=== PATIENT | female | born 1940 | race Caucasian/White ===

== ENCOUNTER 2020-02-13 16:48 | Emergency (ER) | payer MEDICARE ==
[~2020-02-13] VITALS: Ht 152.4 cm; Wt 95.3 kg
[~2020-02-13 16:48] MED LIST: ACETAMINOPHEN-1 EAC1 PO; ALPRAZOLAM ER0.5 MG PO; ASPIRIN; ASPIRIN EC325 M1; ASPIRIN325 PO; AVELOX 400 MG400 MG PO; CAPTOPRIL 25 MG25 M1; CELEBREX100 MG/1 C PO; COZAAR 25MG TAB25 M1 PO; DYRENIUM100 MG; FLUTICASONE; KLOR-CON 1010 MEQ PO; LAMOTRIGINE; LAMOTRIGINE150 MG PO; LAMOTRIGINE25 M2; LEVOTHROID100 MC1; LEVOTHYROXINE; LEVOXYL100 MCG PO; LEXAPRO; LEXAPRO20 MG; LEXAPRO20 MG PO; LIPITOR 20 MG T20 M1 PO; MAXZIDE 75-501 EACH PO; PLAVIX 75 MG TA75 M1 PO; POTASSIUM; POTASSIUM20; PRILOSEC40 MG PO; RISPERDAL0.5 MG PO; RISPERDAL2 MG; RISPERIDONE; SINGULAIR; SINGULAIR 10 MG10 M1; TRIAMTERENE; VERAMYST10 GM; XANAX; XANAX 0.5 MG0.5 MG
[2020-02-13] MEDS ORDERED: RIVASTIGMINE1 EAC1 TOP (17:04)
[2020-02-13] MEDS ORDERED: DOXYCYCLINE 10100 M2 PO (17:09)
[2020-02-13 17:35] VITALS: BP 175/59
== END 2020-02-13 17:36 | disposition home or self-care (01) ==
LOC: M.ERS 16:48
DX: L03.115 Cellulitis of right lower limb (principal); I10 Essential (primary) hypertension; E03.9 Hypothyroidism, unspecified; J45.909 Unspecified asthma, uncomplicated; M19.90 Unspecified osteoarthritis, unspecified site; F32.9 Major depressive disorder, single episode, unspecified; Z96.651 Presence of right artificial knee joint; Z98.51 Tubal ligation status; Z86.73 Personal history of transient ischemic attack (TIA), and cerebral infarction without residual deficits; Z90.49 Acquired absence of other specified parts of digestive tract; Z88.1 Allergy status to other antibiotic agents; Z88.6 Allergy status to analgesic agent; Z88.8 Allergy status to other drugs, medicaments and biological substances

== ENCOUNTER → 2020-02-23 | Outpatient (CLI) | payer MEDICARE ==
[~2020-02-23] MED LIST changes: +DOXYCYCLINE 10100 M2 PO; +RIVASTIGMINE1 EAC1 TOP
== END ==
LOC: M.WC 08:45
DX: S81.811A Laceration without foreign body, right lower leg, initial encounter (principal); E78.5 Hyperlipidemia, unspecified; E03.9 Hypothyroidism, unspecified; E66.9 Obesity, unspecified; H81.09 Meniere's disease, unspecified ear; I10 Essential (primary) hypertension; J42 Unspecified chronic bronchitis; G47.33 Obstructive sleep apnea (adult) (pediatric); G25.81 Restless legs syndrome; M19.90 Unspecified osteoarthritis, unspecified site; M48.061 Spinal stenosis, lumbar region without neurogenic claudication; F32.9 Major depressive disorder, single episode, unspecified; Z90.49 Acquired absence of other specified parts of digestive tract; Z96.653 Presence of artificial knee joint, bilateral; Z86.73 Personal history of transient ischemic attack (TIA), and cerebral infarction without residual deficits; Z79.01 Long term (current) use of anticoagulants; W20.0XXA Struck by falling object in cave-in, initial encounter; Y93.89 Activity, other specified; Y92.89 Other specified places as the place of occurrence of the external cause; Y99.8 Other external cause status; Z68.41 Body mass index [BMI] 40.0-44.9, adult

== ENCOUNTER → 2020-03-01 | Outpatient (CLI) | payer MEDICARE | LOC: M.WC 04:22 | PROVIDERS: ATTEND Surgery | DX: S81.811D Laceration without foreign body, right lower leg, subsequent encounter (principal); E78.5 Hyperlipidemia, unspecified; E03.9 Hypothyroidism, unspecified; E66.9 Obesity, unspecified; G47.33 Obstructive sleep apnea (adult) (pediatric); G25.81 Restless legs syndrome; H81.09 Meniere's disease, unspecified ear; I10 Essential (primary) hypertension; J42 Unspecified chronic bronchitis; M19.90 Unspecified osteoarthritis, unspecified site; M48.061 Spinal stenosis, lumbar region without neurogenic claudication; F32.9 Major depressive disorder, single episode, unspecified; Z68.41 Body mass index [BMI] 40.0-44.9, adult; Z79.01 Long term (current) use of anticoagulants; Z90.49 Acquired absence of other specified parts of digestive tract; Z96.653 Presence of artificial knee joint, bilateral; Z86.73 Personal history of transient ischemic attack (TIA), and cerebral infarction without residual deficits; W19.XXXD Unspecified fall, subsequent encounter ==

== ENCOUNTER → 2020-03-08 | Outpatient (CLI) | payer MEDICARE | LOC: M.WC 04:52 | PROVIDERS: ATTEND Surgery | DX: S81.811D Laceration without foreign body, right lower leg, subsequent encounter (principal); E78.5 Hyperlipidemia, unspecified; E03.9 Hypothyroidism, unspecified; E66.9 Obesity, unspecified; H81.09 Meniere's disease, unspecified ear; I10 Essential (primary) hypertension; G47.33 Obstructive sleep apnea (adult) (pediatric); J42 Unspecified chronic bronchitis; M48.061 Spinal stenosis, lumbar region without neurogenic claudication; M19.90 Unspecified osteoarthritis, unspecified site; G25.81 Restless legs syndrome; F32.9 Major depressive disorder, single episode, unspecified; Z86.73 Personal history of transient ischemic attack (TIA), and cerebral infarction without residual deficits; Z79.01 Long term (current) use of anticoagulants; Z90.49 Acquired absence of other specified parts of digestive tract; Z96.653 Presence of artificial knee joint, bilateral; Z68.41 Body mass index [BMI] 40.0-44.9, adult; W19.XXXD Unspecified fall, subsequent encounter ==

== ENCOUNTER → 2021-02-21 | Outpatient (CLI) | payer MEDICARE | LOC: M.WC 09:00 | PROVIDERS: ATTEND Surgery | DX: S81.812A Laceration without foreign body, left lower leg, initial encounter (principal); E78.5 Hyperlipidemia, unspecified; E03.9 Hypothyroidism, unspecified; E66.9 Obesity, unspecified; G47.33 Obstructive sleep apnea (adult) (pediatric); G25.81 Restless legs syndrome; H81.09 Meniere's disease, unspecified ear; I10 Essential (primary) hypertension; J42 Unspecified chronic bronchitis; M48.061 Spinal stenosis, lumbar region without neurogenic claudication; M19.90 Unspecified osteoarthritis, unspecified site; F32.9 Major depressive disorder, single episode, unspecified; Z86.73 Personal history of transient ischemic attack (TIA), and cerebral infarction without residual deficits; Z96.653 Presence of artificial knee joint, bilateral; Z90.49 Acquired absence of other specified parts of digestive tract; W19.XXXA Unspecified fall, initial encounter; Y93.89 Activity, other specified; Y92.89 Other specified places as the place of occurrence of the external cause; Y99.8 Other external cause status ==

== ENCOUNTER → 2021-02-28 | Outpatient (CLI) | payer MEDICARE | LOC: M.WC 08:27 | DX: S81.812D Laceration without foreign body, left lower leg, subsequent encounter (principal); E78.5 Hyperlipidemia, unspecified; E03.9 Hypothyroidism, unspecified; E66.9 Obesity, unspecified; G47.33 Obstructive sleep apnea (adult) (pediatric); G25.81 Restless legs syndrome; H81.09 Meniere's disease, unspecified ear; I10 Essential (primary) hypertension; J42 Unspecified chronic bronchitis; M48.061 Spinal stenosis, lumbar region without neurogenic claudication; M19.90 Unspecified osteoarthritis, unspecified site; F32.9 Major depressive disorder, single episode, unspecified; Z86.73 Personal history of transient ischemic attack (TIA), and cerebral infarction without residual deficits; Z96.653 Presence of artificial knee joint, bilateral; Z90.49 Acquired absence of other specified parts of digestive tract; W19.XXXD Unspecified fall, subsequent encounter ==

== ENCOUNTER → 2021-03-07 | Outpatient (CLI) | payer MEDICARE | LOC: M.WC 08:19 | PROVIDERS: ATTEND Surgery | DX: S81.812D Laceration without foreign body, left lower leg, subsequent encounter (principal); E78.5 Hyperlipidemia, unspecified; E03.9 Hypothyroidism, unspecified; E66.9 Obesity, unspecified; G47.33 Obstructive sleep apnea (adult) (pediatric); G25.81 Restless legs syndrome; H81.09 Meniere's disease, unspecified ear; I10 Essential (primary) hypertension; J42 Unspecified chronic bronchitis; M48.061 Spinal stenosis, lumbar region without neurogenic claudication; M19.90 Unspecified osteoarthritis, unspecified site; F32.9 Major depressive disorder, single episode, unspecified; Z86.73 Personal history of transient ischemic attack (TIA), and cerebral infarction without residual deficits; Z96.653 Presence of artificial knee joint, bilateral; Z90.49 Acquired absence of other specified parts of digestive tract; W19.XXXD Unspecified fall, subsequent encounter ==

== ENCOUNTER → 2021-03-14 | Outpatient (CLI) | payer MEDICARE | LOC: M.WC 08:45 | PROVIDERS: ATTEND Internal Medicine | DX: S81.812D Laceration without foreign body, left lower leg, subsequent encounter (principal); E78.5 Hyperlipidemia, unspecified; E03.9 Hypothyroidism, unspecified; E66.9 Obesity, unspecified; G47.33 Obstructive sleep apnea (adult) (pediatric); G25.81 Restless legs syndrome; H81.09 Meniere's disease, unspecified ear; I10 Essential (primary) hypertension; J42 Unspecified chronic bronchitis; M48.061 Spinal stenosis, lumbar region without neurogenic claudication; M19.90 Unspecified osteoarthritis, unspecified site; F32.9 Major depressive disorder, single episode, unspecified; Z86.73 Personal history of transient ischemic attack (TIA), and cerebral infarction without residual deficits; Z96.653 Presence of artificial knee joint, bilateral; Z90.49 Acquired absence of other specified parts of digestive tract; W19.XXXD Unspecified fall, subsequent encounter ==

== ENCOUNTER → 2021-06-13 | Outpatient (CLI) | payer MEDICARE ==
--- NOTE | 2021-06-13 13:06 | 2DMMODE ---
[place] [address] 2 D/M-MODE ECHOCARDIOGRAM Name: AMBIKA VÁZQUEZ Room: [facility]#: [id number] Admission: 06/13/21 Attend Phys: Kayli Rojas DO Discharge: Date of : 38 Date of Service: 06/13/21 1306 Report #: [id number] THIS REPORT FOR: cc: Kayli Rojas Maggie M. DO Holkins, John M. MD [facility] ~ APPROVED REPORT Study performed: 06/13/2021 09:49:31 EXAM: Comprehensive 2D, Doppler, and color-flow Echocardiogram Patient Location: Out-Patient BSA: 1.85 HR: 74 bpm BP: 142/90 mmHg Other Information Study Quality: Good Indications Murmur 2D Dimensions IVSd: 9.12 (7-11mm) LVOT Diam: 21.15 (18-24mm) LVDd: 44.36 mm PWd: 10.84 (7-11mm) Ascending Ao: 30.06 (22-36mm) LVDs: 26.07 (25-40mm) Aortic Root: 25.34 mm Volumes Left Atrial Volume (Systole) LA ESV Index: 16.80 mL/m2 LV Strain GL Strain(%): 8.00 Aortic Valve AoV Peak Trent.: 2.40 m/s AO Peak Gr.: 23.07 mmHg LVOT Max P.35 mmHg AO Mean Gr.: 12.73 mmHg LVOT Mean P.98 mmHg LVOT Max V: 1.04 m/s AO V2 VTI: 58.32 cm LVOT Mean V: 0.65 m/s POLA (VTI): 1.43 cm2 LVOT V1 VTI: 23.76 [place] [address] 2 D/M-MODE ECHOCARDIOGRAM Name: AMBIKA VÁZQUEZ Room: [facility]#: [id number] Admission: 06/13/21 Attend Phys: Kayli Rojas DO Discharge: Date of : 38 Date of Service: 06/13/21 1306 Report #: [id number] AI Barrow: 1.48 m/s2 AI PHT: 837.91 ms Mitral Valve E/A Ratio: 0.95 MV Decel. Time: 281.78 ms MV E Max Trent.: 0.79 m/s MV PHT: 81.72 ms MVA (PHT): 2.69 cm2 TDI E/Lateral E': 8.78 E/Medial E': 8.78 Medial E' Trent.: 0.09 m/s Lateral E' Trent.: 0.09 m/s Pulmonary Valve PV Peak Trent.: 1.12 m/s PV Peak Gr.: 5.00 mmHg Tricuspid Valve RAP Estimate: 5.00 mmHg TR Peak Gr.: 19.58 mmHg RVSP: 24.58 mmHg PA Pressure: 24.58 mmHg Left Ventricle The left ventricle is normal size. There is normal LV segmental wall motion. There is normal left ventricular wall thickness. Left ventricular systolic function is normal. The left ventricular ejection fraction is within the normal range. LVEF is 55-60%. Grade I - abnormal relaxation pattern. Right Ventricle The right ventricle is normal size. The right ventricular systolic function is normal. Atria The left atrium size is normal. The right atrium size is normal. Aortic Valve Moderate aortic valve sclerosis. Mild aortic regurgitation. Mild aortic stenosis. Mitral Valve The mitral valve is normal in structure. Mild mitral regurgitation. No evidence of mitral [place] [address] 2 D/M-MODE ECHOCARDIOGRAM Name: AMBIKA VÁZQUEZ Room: [facility]#: [id number] Admission: 06/13/21 Attend Phys: Kayli Rojas DO Discharge: Date of : 38 Date of Service: 06/13/21 1306 Report #: [id number] Tricuspid Valve The tricuspid valve is normal in structure. Mild tricuspid regurgitation. Pulmonic Valve The pulmonary valve is normal in structure. There is no pulmonic valvular regurgitation. Great Vessels The aortic root is normal in size. IVC is normal in size and collapses >50% with inspiration. Pericardium There is no pericardial effusion. <Conclusion> The left ventricle is normal size. There is normal left ventricular wall thickness. Left ventricular systolic function is normal. The left ventricular ejection fraction is within the normal range. LVEF is 55-60%. Grade I - abnormal relaxation pattern. The right ventricle is normal size. The left atrium size is normal. Moderate aortic valve sclerosis. Mild aortic regurgitation. Mild aortic stenosis. The mitral valve is normal in structure. Mild mitral regurgitation. The tricuspid valve is normal in structure. Mild tricuspid regurgitation. IVC is normal in size and collapses >50% with inspiration. There is no pericardial effusion. There is normal LV segmental wall motion. <ELECTRONICALLY SIGNED> By: Karan Olivier MD, [facility] 06/13/21 1306 1306 1306 Karan Olivier MD, FACC /INF
== END ==
LOC: M.CRD 10:00
PROVIDERS: ATTEND Family Medicine
DX: I08.3 Combined rheumatic disorders of mitral, aortic and tricuspid valves (principal); R01.1 Cardiac murmur, unspecified